=== PATIENT | male | born 1965 | race Hispanic/Latino ===

== ENCOUNTER 2021-12-12 10:04 | Inpatient (IN) | payer SELFPAY ==
[2021-12-12 12:43] LABS: Absolute Lymphocytes (CBC) 2.1 K/uL (0.7-4.9); Hematocrit 41.9 % (39.6-49.0); Lymphocytes % 24.2 % (15.3-44.8); MCV 87.4 fL (80-100); MPV 9.2 fL (7.6-11.3); RBC Red Blood Cell Count 4.79 M/uL (4.33-5.43)
[2021-12-12 12:58] LABS: SARS-CoV-2 Antigen Rapid Res Negative (Negative)
[2021-12-12] MEDS ORDERED: Levofloxacin 750mg IV 750 MG/150 ML BAG IV ONE (12:58)
[2021-12-12] MEDS ORDERED: NA CHLORIDE 0.9% 1,000 ML ONE (12:58)
[2021-12-12] MEDS ORDERED: MORPHINE 2 MG/ML SYR ONE (12:58)
[2021-12-12] MEDS ORDERED: METRONIDAZOLE 500mg IVPB 500 MG/100 ML BAG IV ONE (12:58)
[2021-12-12] MEDS ORDERED: ONDANSETRON 4 MG/2 ML VIAL ONE (12:58)
[2021-12-12 13:06] LABS: ALT/SGPT 30 U/L (12-78); AST/SGOT 12 U/L (15-37); Albumin 3.7 g/dL (3.4-5.0); Alkaline Phosphatase 115 U/L (45-117); BUN Blood Urea Nitrogen 12 mg/dL (7-18); Bicarbonate 27 mmol/L (21-32); Bilirubin Total 0.4 mg/dL (0.2-1.0); Glomerular Filtration Rate 93 ml/min (=/>90); Glucose Level 318 mg/dL (74-106); Magnesium 1.6 mg/dL (1.8-2.4); NT PRO-BNP 29 pg/mL (<125); Potassium 4.2 mmol/L (3.5-5.1); Protein, Total 7.9 g/dL (6.4-8.2); Sodium Level 134 mmol/L (136-145); Troponin High Sensitivity 12.9 pg/mL (<58.9)
[2021-12-12 13:07] LABS: Bilirubin Direct < 0.1 mg/dL (0-0.2)
--- NOTE | 2021-12-12 13:44 | RAD REPORT ---
EXAM DESCRIPTION: CT - Abdomen Pelvis W Contrast - 12/12/2021 1:28 pm CLINICAL HISTORY: Abdominal pain/rectal abscess COMPARISON: none. TECHNIQUE: Computed axial tomography of the abdomen pelvis was obtained. 100 cc Isovue-300 was admin istered intravenously. Oral contrast was not requested which limits evaluation of bowel and appendix All CT scans are performed using dose optimization technique as appropriate and may include automated exposure control or mA/KV adjustment according to patient size. FINDINGS: The liver, spleen, pancreas, adrenal and kidneys appear unremarkable. There is no evidence of diverticulitis. Normal appendix Rectal wall is normal thickness. Stranding is present within the right perianal fat. A fluid-filled a bscess is not seen. Moderate amount of stool within the colon Small inguinal hernias contain fat IMPRESSION: Stranding within the right perianal fat indicative of inflammation. A fluid-filled absce ss is not visualized
--- NOTE | 2021-12-12 13:44 | RAD REPORT ---
EXAM DESCRIPTION: Matty Single View12/12/2021 1:30 pm CLINICAL HISTORY: Cough COMPARISON: none FINDINGS: The lungs appear clear of acute infiltrate. The heart is normal size IMPRESSION: No acute abnormalities displayed
--- NOTE | 2021-12-12 15:52 | ER ---
Nurse's Notes [facility] Name: Gregg Barcenas Age: 55 yrs Sex: Male : 1965 Arrival Date: 12/12/2021 Time: 10:08 Bed 11 Private MD: Diagnosis: Hypomagnesemia;Anorectal abscess;Type 2 diabetes mellitus with hyperglycemia;Elevated white blood cell count Presentation: 12/12 10:50 Chief complaint: Patient states: I have an abscess in my rectum and I went to a clinic [facility] last month and they gave me medicine but I feel like its getting worse and its hurting more. Coronavirus screen: At this time, the client does not indicate any symptoms associated with coronavirus-19. Ebola Screen: No symptoms or risks identified at this time. Initial Sepsis Screen: Does the patient meet any 2 criteria? No. Patient's initial sepsis screen is negative. Does the patient have a suspected source of infection? Yes: Skin breakdown/wound. Risk Assessment: Do you want to hurt yourself or someone else? Patient reports no desire to harm self or others. Onset of symptoms is unknown. 10:50 Method Of Arrival: Ambulatory 7 10:50 Acuity: ZOYA 3 bm7 Triage Assessment: 10:53 General: Appears in no apparent distress. uncomfortable, Behavior is calm, cooperative, bm7 appropriate for age. Pain: Complains of pain in gluteal cleft. EENT: No deficits noted. No signs and/or symptoms were reported regarding the EENT system. Neuro: No deficits noted. Cardiovascular: No deficits noted. Respiratory: No deficits noted. GI: No deficits noted. No signs and/or symptoms were reported involving the gastrointestinal system. : No deficits noted. No signs and/or symptoms were reported regarding the genitourinary system. Derm: Skin is intact, is healthy with good turgor, Skin is dry, Skin is pink, warm \T\ dry. Skin temperature is warm Wound noted gluteal cleft Abscess located on gluteal cleft. Musculoskeletal: No deficits noted. No signs and/or symptoms reported regarding the musculoskeletal system. Historical: - Allergies: 10:51 No Known Allergies; bm7 - Home Meds: 10:51 metformin 500 mg Oral tab 1 tab 2 times per day [Active]; lisinopril 10 mg Oral tab 1 bm7 tab once daily [Active]; - PMHx: 10:51 Diabetes mellitus; Hypertensive disorder; bm7 - PSHx: 10:51 None; bm7 - Immunization history:: Adult Immunizations up to date, Client reports receiving the 2nd dose of the Covid vaccine, Client reports receiving the 1st dose of the Covid vaccine. - Social history:: Smoking status: Patient denies any tobacco usage or history of. - Family history:: not pertinent. Screenin:43 Abuse screen: Denies threats or abuse. Denies injuries from another. Nutritional ss screening: No deficits noted. Tuberculosis screening: Never had TB. Fall Risk None identified. Assessment: 12:00 General: Appears in no apparent distress. Pain: Complains of pain in gluteal cleft Pain ss currently is 8 out of 10 on a pain scale. Quality of pain is described as tender, Is continuous. Neuro: Level of Consciousness is awake, alert, obeys commands, Oriented to person, place, time, situation. Cardiovascular: Capillary refill < 3 seconds is brisk in bilateral fingers. Respiratory: Airway is patent Respiratory effort is even, unlabored, Respiratory pattern is regular, symmetrical. GI: Patient currently denies diarrhea, nausea, vomiting. : No signs and/or symptoms were reported regarding the genitourinary system. Derm: Skin is intact, is healthy with good turgor, Skin is dry, Skin is pink, warm \T\ dry. normal. Musculoskeletal: Circulation, motion, and sensation intact. Range of motion: intact in all extremities, Swelling absent. 13:20 Reassessment: Pt to CT now VIA stretcher. ss 14:43 Reassessment: Patient appears in no apparent distress at this time. Patient and/or ss family updated on plan of care and expected duration. Pain level reassessed. Patient is alert, oriented x 3, equal unlabored respirations, skin warm/dry/pink. Pt reports pain is currently 5/10. States that pain medication seemed to help. Levaquin infusing at this time. Awaiting disposition Patient states feeling better. Patient states symptoms have improved. 15:45 Reassessment: Patient appears in no apparent distress at this time. Patient and/or ss family updated on plan of care and expected duration. Pain level reassessed. 18:29 Reassessment: Patient appears in no apparent distress at this time. Patient and/or ss family updated on plan of care and expected duration. Pain level reassessed. Awaiting room assignment. City Dispatch Supervisor, Penny states it will be after shift change. 18:30 Reassessment: Pt ate 100% of Dinner. Has no complaints at this time. Call light remains ss within reach. at bedside. 19:18 Reassessment: Attempted to call report. Nurse unavailable at this time. ss 19:53 Reassessment: report called to Poornima BARROS for room 410. bb Vital Signs: 10:50 BP 168 / 87; Pulse 91; Resp 16; Temp 97.4(TE); Pulse Ox 100% on R/A; Weight 68.04 kg bm7 (R); Height 5 ft. 4 in. (162.56 cm); Pain 8/10; 16:15 BP 135 / 84; Pulse 75; Resp 16; Pulse Ox 99% ; ss 17:15 BP 151 / 80; Pulse 79; Resp 15; Pulse Ox 100% on R/A; Pain 4/10; ss 10:50 Body Mass Index 25.75 (68.04 kg, 162.56 cm) bm7 ED Course: 10:08 Patient arrived in ED. mr 10:51 Triage completed. bm7 10:53 Arm band placed on right wrist. Patient placed in waiting room, Patient notified of bm7 wait time. 11:45 Bib Black MD is Attending Physician. jama 12:35 Inserted saline lock: 20 gauge in right antecubital area, using aseptic technique. zm Blood collected. 12:36 SARS RAPID Sent. zm 12:36 Basic Metabolic Panel Sent. zm 12:36 CBC with Diff Sent. zm 12:36 LFT's Sent. zm 12:36 Magnesium Sent. zm 12:36 NT PRO-BNP Sent. zm 12:36 PT-INR Sent. zm 12:36 Troponin HS Sent. zm 13:01 Stephani Gates, RN is Primary Nurse. ss 13:29 CT Abd/Pelvis - IV Contrast Only In Process Unspecified. EDMS 13:33 XRAY Chest (1 view) In Process Unspecified. EDMS 14:43 Patient has correct armband on for positive identification. Bed in low position. ss 15:51 Melquiades Friend is Hospitalizing Provider. jama 19:18 No provider procedures requiring assistance completed. Patient admitted, IV remains in ss place. Administered Medications: 12:45 Drug: Zofran (Ondansetron) 4 mg Route: IVP; Site: right antecubital; ss 15:10 Follow up: Response: No adverse reaction ss 12:47 Drug: morphine 2 mg Route: IVP; Infused Over: 4 mins; Site: right antecubital; ss 15:10 Follow up: Response: No adverse reaction; Pain is decreased ss 13:01 Drug: NS 0.9% 1000 ml Route: IV; Rate: 125 ml/hr; Site: right antecubital; ss 16:04 Follow up: IV Status: Infusion continued upon admission ss 13:02 Drug: Flagyl (metroNIDAZOLE) 500 mg Volume: 100 ml; Route: IVPB; Rate: 200 ml/hr; ss Infused Over: 30 mins; Site: right antecubital; 13:47 Follow up: IV Status: Completed infusion ss 13:47 Drug: levofloxacin 750 mg Volume: 150 ml; Route: IVPB; Infused Over: 90 mins; Site: ss right antecubital; 15:45 Follow up: IV Status: Completed infusion ss 15:56 Drug: Magnesium Sulfate 1 grams Route: IVPB; Infused Over: 1 hrs; Site: right ss antecubital; 16:52 Follow up: IV Status: Completed infusion; IV Intake: 100ml ss 16:06 Not Given (Patient Refused): morphine 2 mg IVP once over 4 mins ss 17:38 Not Given (Other Intervention Used): Semaglutide Pen Injector 30 units Sub-Q once ss 17:53 Not Given (Other Intervention Used): Insulin Regular Human 5 units IVP once ss 17:53 Drug: Semglee 100 unit/mL 20 units Route: Sub-Q; Site: right upper arm; ss 17:53 Drug: Insulin Regular Human 5 units {Co-Signature: hb (Kourtney Silva RN).} Route: ss Sub-Q; Site: abdomen; Medication: 14:43 VIS not applicable for this client. ss Intake: 16:52 IV: 100ml; Total: 100ml. ss Outcome: 15:52 Decision to Hospitalize by Provider. [facility] 19:53 Admitted to Tele accompanied by tech, via wheelchair, room 410, with chart, Report bb called to Poornima BARROS 19:53 Condition: stable 19:54 Patient left the ED. bb Signatures: Dispatcher [employer] Bib Cerna MD MD cha Rivera, Mary mr Ballard, Emily, RN RN bb Stephani Gates RN RN ss Anne Briones RN RN bm7 Татьяна Hernández RN
--- NOTE | 2021-12-12 15:52 | EDPHYS ---
Physician Documentation [facility] Name: Gregg Barcenas Age: 55 yrs Sex: Male : 1965 Arrival Date: 12/12/2021 Time: 10:08 Bed 11 Private MD: SHIVANI Physician Bib Black HPI: 12/12 15:45 This 55 yrs old Male presents to ER via Ambulatory with complaints of jama Infection. 15:45 The patient presents with an abscess of the gluteal cleft, The patient presents with jama cellulitis of the gluteal cleft. Description: The affected area is moderate sized, localized, draining, erythematous, fluctuant. Onset: The symptoms/episode began/occurred 21 day(s) ago. Possible cause(s): unknown. Associated signs and symptoms: The patient has no apparent associated signs or symptoms. Modifying factors: the symptoms are alleviated by remaining still, sitz bath, the symptoms are aggravated by movement, walking, pressure, squeezing the lesion and expressing the contents. Severity of symptoms: At their worst the symptoms were moderate, in the emergency department the symptoms are unchanged. The patient has experienced similar episodes in the past, a few times. Historical: - Allergies: 10:51 No Known Allergies; bm7 - Home Meds: 10:51 metformin 500 mg Oral tab 1 tab 2 times per day [Active]; lisinopril 10 mg Oral tab 1 bm7 tab once daily [Active]; - PMHx: 10:51 Diabetes mellitus; Hypertensive disorder; bm7 - PSHx: 10:51 None; bm7 - Immunization history:: Adult Immunizations up to date, Client reports receiving the 2nd dose of the Covid vaccine, Client reports receiving the 1st dose of the Covid vaccine. - Social history:: Smoking status: Patient denies any tobacco usage or history of. - Family history:: not pertinent. ROS: 15:45 Constitutional: Negative for fever, chills, and weight loss, Eyes: Negative for injury, jama pain, redness, and discharge, ENT: Negative for injury, pain, and discharge, Neck: Negative for injury, pain, and swelling, Cardiovascular: Negative for chest pain, palpitations, and edema, Respiratory: Negative for shortness of breath, cough, wheezing, and pleuritic chest pain, Back: Negative for injury and pain, : Negative for injury, bleeding, discharge, and swelling, MS/Extremity: Negative for injury and deformity, Skin: Negative for injury, rash, and discoloration, Neuro: Negative for headache, weakness, numbness, tingling, and seizure, Psych: Negative for depression, anxiety, suicide ideation, homicidal ideation, and hallucinations, Allergy/Immunology: Negative for hives, rash, and allergies, Endocrine: Negative for neck swelling, polydipsia, polyuria, polyphagia, and marked weight changes, Hematologic/Lymphatic: Negative for swollen nodes, abnormal bleeding, and unusual bruising. 15:45 Abdomen/GI: Positive for rectal pain, of the . Exam: 15:45 Constitutional: This is a well developed, well nourished patient who is awake, alert, jama and in no acute distress. Head/Face: Normocephalic, atraumatic. Eyes: Pupils equal round and reactive to light, extra-ocular motions intact. Lids and lashes normal. Conjunctiva and sclera are non-icteric and not injected. Cornea within normal limits. Periorbital areas with no swelling, redness, or edema. ENT: Nares patent. No nasal discharge, no septal abnormalities noted. Tympanic membranes are normal and external auditory canals are clear. Oropharynx with no redness, swelling, or masses, exudates, or evidence of obstruction, uvula midline. Mucous membranes moist. Neck: Trachea midline, no thyromegaly or masses palpated, and no cervical lymphadenopathy. Supple, full range of motion without nuchal rigidity, or vertebral point tenderness. No Meningismus. Chest/axilla: Normal chest wall appearance and motion. Nontender with no deformity. No lesions are appreciated. Cardiovascular: Regular rate and rhythm with a normal S1 and S2. No gallops, murmurs, or rubs. Normal PMI, no JVD. No pulse deficits. Respiratory: Lungs have equal breath sounds bilaterally, clear to auscultation and percussion. No rales, rhonchi or wheezes noted. No increased work of breathing, no retractions or nasal flaring. Back: No spinal tenderness. No costovertebral tenderness. Full range of motion. Male : Normal genitalia with no discharge or lesions. Skin: Warm, dry with normal turgor. Normal color with no rashes, no lesions, and no evidence of cellulitis. MS/ Extremity: Pulses equal, no cyanosis. Neurovascular intact. Full, normal range of motion. Neuro: Awake and alert, GCS 15, oriented to person, place, time, and situation. Cranial nerves II-XII grossly intact. Motor strength 5/5 in all extremities. Sensory grossly intact. Cerebellar exam normal. Normal gait. Psych: Awake, alert, with orientation to person, place and time. Behavior, mood, and affect are within normal limits. 15:45 Abdomen/GI: Inspection: abdomen appears normal, Bowel sounds: normal, Palpation: abdomen is soft and non-tender, nontender, Rectal exam: Stool: guaiac negative, hemorrhoid(s), are not appreciated, mass, is not appreciated, swelling, that is moderate, tenderness, that is severe, fecal impaction, is not appreciated, Liver: no appreciated palpable abnormalities, PERIRECTAL ABSCESS, Hernia: 15:54 ECG was reviewed by the Attending Physician. [facility] Vital Signs: 10:50 BP 168 / 87; Pulse 91; Resp 16; Temp 97.4(TE); Pulse Ox 100% on R/A; Weight 68.04 kg bm7 (R); Height 5 ft. 4 in. (162.56 cm); Pain 8/10; 16:15 BP 135 / 84; Pulse 75; Resp 16; Pulse Ox 99% ; ss 17:15 BP 151 / 80; Pulse 79; Resp 15; Pulse Ox 100% on R/A; Pain 4/10; ss 10:50 Body Mass Index 25.75 (68.04 kg, 162.56 cm) bm7 MDM: 11:45 Patient medically screened. [facility] 15:45 Differential diagnosis: abscess, cellulitis. Data reviewed: vital signs, nurses notes, [facility] lab test result(s), EKG, radiologic studies, CT scan, plain films. Data interpreted: front desk monitor: rate is 91 beats/min, rhythm is regular, Pulse oximetry: on room air is 100 %. Test interpretation: by ED physician or midlevel provider: ECG, plain radiologic studies. Counseling: I had a detailed discussion with the patient and/or guardian regarding: lab results, radiology results, the need for further work-up and treatment in the hospital. 15:50 Physician consultation: Brett Givens MD. [facility] 12/12 11:52 Order name: Basic Metabolic Panel; Complete Time: 15:31 [facility] 12/12 11:52 Order name: CBC with Diff; Complete Time: 15:31 [facility] 12/12 11:52 Order name: LFT's; Complete Time: 15:31 [facility] 12/12 11:52 Order name: Magnesium; Complete Time: 15:31 [facility] 12/12 11:52 Order name: NT PRO-BNP; Complete Time: 15:31 [facility] 12/12 11:52 Order name: PT-INR; Complete Time: 15:31 [facility] 12/12 11:52 Order name: Troponin HS; Complete Time: 15:31 [facility] 12/12 11:52 Order name: XRAY Chest (1 view); Complete Time: 15:31 [facility] 12/12 11:52 Order name: SARS RAPID; Complete Time: 15:31 [facility] 12/12 11:52 Order name: CT Abd/Pelvis - IV Contrast Only; Complete Time: 15:31 [facility] 12/12 17:06 Order name: Glucose, Ancillary Testing EDMS 12/12 11:52 Order name: EKG; Complete Time: 11:53 [facility] 12/12 11:52 Order name: Cardiac monitoring; Complete Time: 12:44 [facility] 12/12 11:52 Order name: EKG - Nurse/Tech; Complete Time: 12:44 [facility] 12/12 11:52 Order name: IV Saline Lock; Complete Time: 12:36 [facility] 12/12 11:52 Order name: Labs collected and sent; Complete Time: 12:36 [facility] 12/12 11:52 Order name: O2 Per Protocol; Complete Time: 12:44 [facility] 12/12 11:52 Order name: O2 Sat Monitoring; Complete Time: 12:44 [facility] EC:54 Rate is 78 beats/min. Rhythm is regular. QRS [place] is Normal. [place] interval is normal. QRS jama interval is normal. QT interval is normal. No Q waves. T waves are Normal. No ST changes noted. Clinical impression: NSR w/ Non-specific ST/T Changes and No evidence of ischemia. Interpreted by me. Reviewed by me. Administered Medications: 12:45 Drug: Zofran (Ondansetron) 4 mg Route: IVP; Site: right antecubital; ss 15:10 Follow up: Response: No adverse reaction ss 12:47 Drug: morphine 2 mg Route: IVP; Infused Over: 4 mins; Site: right antecubital; ss 15:10 Follow up: Response: No adverse reaction; Pain is decreased ss 13:01 Drug: NS 0.9% 1000 ml Route: IV; Rate: 125 ml/hr; Site: right antecubital; ss 16:04 Follow up: IV Status: Infusion continued upon admission ss 13:02 Drug: Flagyl (metroNIDAZOLE) 500 mg Volume: 100 ml; Route: IVPB; Rate: 200 ml/hr; ss Infused Over: 30 mins; Site: right antecubital; 13:47 Follow up: IV Status: Completed infusion ss 13:47 Drug: levofloxacin 750 mg Volume: 150 ml; Route: IVPB; Infused Over: 90 mins; Site: ss right antecubital; 15:45 Follow up: IV Status: Completed infusion ss 15:56 Drug: Magnesium Sulfate 1 grams Route: IVPB; Infused Over: 1 hrs; Site: right ss antecubital; 16:52 Follow up: IV Status: Completed infusion; IV Intake: 100ml ss 16:06 Not Given (Patient Refused): morphine 2 mg IVP once over 4 mins ss 17:38 Not Given (Other Intervention Used): Semaglutide Pen Injector 30 units Sub-Q once ss 17:53 Not Given (Other Intervention Used): Insulin Regular Human 5 units IVP once ss 17:53 Drug: Semglee 100 unit/mL 20 units Route: Sub-Q; Site: right upper arm; ss 17:53 Drug: Insulin Regular Human 5 units {Co-Signature: hb (Kourtney Silva RN).} Route: ss Sub-Q; Site: abdomen; Disposition Summary: 12/12/21 15:52 Hospitalization Ordered Hospitalization Status: Observation jama Provider: Melquiades Friend cha [facility] jama Condition: Stable jama Problem: new jama Symptoms: have improved jama Bed/Room Type: Standard jama Room Assignment: 410(12/12/21 18:47) ss Diagnosis - Hypomagnesemia jama - Anorectal abscess jama - Type 2 diabetes mellitus with hyperglycemia jama - Elevated white blood cell count jama Forms: - Medication Reconciliation Form jama - SBAR form jama Signatures: Dispatcher [employer] Bib Cerna MD MD cha Smirch, Shelby, RN RN ss Anne Briones RN RN bm7 Kourtney mata Corrections: (The following items were deleted from the chart) 18:47 15:52 jama ss
[2021-12-12] MEDS ORDERED: MAGNESIUM SULFATE 1 gm IVPB 1 GM/100 ML BAG IV ONE (15:59)
[2021-12-12] MEDS ORDERED: INSULIN GLARGINE 100 UNIT/ML SQ ONE (17:45)
[2021-12-12] MEDS ORDERED: INSULIN -REGULAR HUMAN 50 UNIT/0.5 ML ML ONE (17:46)
--- NOTE | 2021-12-12 18:01 | P.HP ---
Certification for Inpatient Patient admitted to: Inpatient With expected LOS: >2 Midnights Practitioner: I am a practitioner with admitting privileges, knowledge of patient current condition, hospital course, and medical plan of care. Services: Services provided to patient in accordance with Admission requirements found in Title 42 Section 412.3 of the Code of Federal Regulations Patient History Date of Service: 12/12/21 Reason for admission: Draining abscess in the anal area History of Present Illness: 55-year-old gentleman with a history of diabetes mellitus presented to the emergency department due to draining perirectal abscess. Patient report development lump in the anal area about 1 month ago. He went to a clinic and was prescribed 2 antibiotics which he took for 10 days with no improvement. The lump began to drain a couple of days ago. He therefore presented to the ED for evaluation. CT abdomen and pelvis demonstrated stranding within the right perianal fat indicative of inflammation, no abscess identified. Patient has no leukocytosis and does not meet criteria for sepsis. General surgery Dr. Shelton was contacted who recommended hospitalization for examination in the OR. Patient is admitted for further management. - Past Medical/Surgical History -: Diabetes mellitus type 2 -: Hypertension - Family History Mother -: Diabetes - Social History Smoking Status: Former smoker Alcohol use: No CD- Drugs: No Place of Residence: Home Review of Systems Other: Except as documented, all other systems reviewed and negative. Physical Examination - Physical Exam General: Alert, In no apparent distress, Oriented x3 HEENT: Atraumatic, Mucous membr. moist/pink, Sclerae nonicteric Neck: Supple, JVD not distended Respiratory: Clear to auscultation bilaterally, Normal air movement Cardiovascular: No edema, Regular rate/rhythm, Normal S1 S2 Gastrointestinal: Normal bowel sounds, Soft and benign, Non-distended, No tenderness Musculoskeletal: No swelling, No tenderness Integumentary: No rashes, No erythema Neurological: Normal strength at 5/5 x4 extr, Cranial nerves 3-12 intact Rectal: Other (Pus draining pustule with surrounding induration.) - Studies Laboratory Data (last 24 hrs) 12/12/21 12:30: PT 11.0, INR 1.00 12/12/21 12:30: WBC 8.90, Hgb 14.4, Hct 41.9, Plt Count 258 12/12/21 12:30: Sodium 134 L, Potassium 4.2, BUN 12, Creatinine 0.95, Glucose 318 H, Magnesium 1.6 L, Total Bilirubin 0.4, AST 12 L, ALT 30, Alkaline Phosphatase 115 Assessment and Plan - Problems (Diagnosis) (1) Perirectal abscess Current Visit: Yes Status: Acute (2) DM type 2 (diabetes mellitus, type 2) Current Visit: Yes Status: Acute (3) Hypertension Current Visit: Yes Status: Acute - Plan Admit patient to the medical floor. IV antibiotics-Levaquin and Flagyl. Opioids as needed for pain. Obtain blood culture General surgery-Dr. Givens consulted to evaluate Insulin sliding scale for glucose management Hold metformin. Reconcile and continue other home medications. - Advance Directives Does patient have a Living Will: No Does patient have a Durable POA for Healthcare: No
[2021-12-12] MEDS ORDERED: ONDANSETRON 4 MG/2 ML VIAL IV PRN (20:43)
[2021-12-12] MEDS ORDERED: MORPHINE 4 MG/ML SYR IV PRN (20:43)
[2021-12-12] MEDS ORDERED: ACETAMINOPHEN 500 MG TAB PO PRN (20:43)
[2021-12-12] MEDS: INSULIN -REGULAR HUMAN 50 UNIT/0.5 ML ML SQ SCH (21:00)
[2021-12-13] MEDS: NA CHLORIDE 0.9% 1,000 ML IV SCH ×3 (00:04→16:43)
[2021-12-13] MEDS: METRONIDAZOLE 500mg IVPB 500 MG/100 ML BAG IV SCH ×3 (00:05→17:03)
[2021-12-13 04:18] LABS: Absolute Lymphocytes (CBC) 2.4 K/uL (0.7-4.9); Hematocrit 37.1 % (39.6-49.0); Lymphocytes % 23.3 % (15.3-44.8); MCV 85.7 fL (80-100); RBC Red Blood Cell Count 4.33 M/uL (4.33-5.43)
[2021-12-13 04:22] LABS: Phosphorus 3.2 mg/dL (2.5-4.9); Potassium 3.9 mmol/L (3.5-5.1)
[2021-12-13 04:23] LABS: Magnesium 1.2 mg/dL (1.8-2.4)
[2021-12-13] MEDS ORDERED: Magnesium Sulfate 2gm IVPB 2 G/50 ML BAG IV ONE (04:27)
[2021-12-13] MEDS: INSULIN -REGULAR HUMAN 50 UNIT/0.5 ML ML SQ SCH ×4 (07:30→20:53)
[2021-12-13] MEDS ORDERED: KCL 20 MEQ/100 mL IVPB 20 MEQ/100 ML BAG IV SCH (09:00)
[2021-12-13] MEDS ORDERED: NA CHLORIDE 0.9% 1,000 ML ONE (11:44)
--- NOTE | 2021-12-13 12:28 | P.CNS ---
Date of Consult: 12/13/21 Reason for consult: Rectal pain History of present illness: Patient is 55-year-old gentleman whose had an infectious disease perirectal region for the last month. Patient went to a clinic in [place] was started on antibiotics. Over the last week the area has started to drain. However, he had increasing pain; therefore, he came to the emergency room. He denies any nausea, vomiting, diarrhea, constipation, blood per rectum, dysuria, hematuria, chest pain, fever or chills. Review of systems: Otherwise unremarkable Past medical history: Hypertension diabetes Past surgical history: Negative Allergies: No allergies Social history: Patient used to be a smoker currently does not and denies drinking alcohol Family history: Noncontributory Vital signs: Stable, afebrile Physical exam: Awake alert oriented x3 Head and neck exam: No neck masses, no JVD, throat clear, neck supple and cranial nerves II through XII grossly within normal limits Chest: Clear Heart: S1-S2 Abdomen: Soft Extremity: Neurovascular intact, nontender Neuro: Nonfocal Rectal: Anterior to the anus in the right side there is approximately a 3 cm are a of induration redness warmth tenderness and minimal fluctuance Diagnostic data: White count is 10.2 INR is 1.0 magnesium was 1.2 which has been replaced now is 1.8 CT scan of the abdomen pelvis reveals stranding in the right perianal fat indicative of inflammation a large fluid-filled abscess is not visualized. Assessment: Perirectal abscess and infection. Plan/recommendation: N.p.o., IV antibiotics and to the OR for exam under anesthesia, rigid proctoscopy and debridement of perirectal abscess and infection. Patient understands risk, benefits and alternatives and agrees to procedure. CC:
[2021-12-13] MEDS ORDERED: propofoL 200 MG/20 ML VIAL IV ONE (12:47)
[2021-12-13] MEDS ORDERED: LIDOCAINE 2% MPF 5 ML VIAL ONE (12:47)
[2021-12-13] MEDS ORDERED: FENTANYL CITR 100 MCG/2 ML ONE (12:47)
[2021-12-13] MEDS ORDERED: dexAMETHasone 10 MG/ML VIAL ONE (12:48)
[2021-12-13] MEDS ORDERED: ONDANSETRON 4 MG/2 ML VIAL ONE (12:48)
[2021-12-13] MEDS ORDERED: KETOROLAC 30 MG/ML INJ ONE (12:48)
[2021-12-13] MEDS ORDERED: Levofloxacin 750mg IV 750 MG/150 ML BAG IV SCH (13:00)
--- NOTE | 2021-12-13 13:41 | P.OP ---
Date of Service: 12/13/21 Preop diagnosis: Right anterior perirectal abscess Postop diagnosis: Same, possible fistula high in the rectum Procedure performed: Exam under anesthesia, rigid proctoscopy, incision drainage and debridement of right anterior perirectal abscess Surgeon: Brett Givens MD Fertilizer Mixer: None Estimated blood loss: Minimal Specimen: Pus Findings: As above Anesthesia: General Complications: None Drains: None Fluids and blood products: Nonapplicable Disposition: Recovery room Operative note: Patient brought to the OR and placed in the supine position. General anesthesia begun. Patient placed in the lithotomy position. Patient prepped and draped in the usual sterile fashion. Exam under anesthesia revealed a 3 x 3 cm area of erythema, warmth and induration with fluctuance at the 11 o'clock position. Rigid proctoscopy did not reveal any evidence of disease. Marcaine 0.5% infiltrated locally. Then the 3 x 3 cm area of erythema and small opening was excised. Granulation tissue and pus evacuated and cultures done. Wound irrigated and bleeding controlled cautery. Curette used to debride the wound of the chronic granulation tissue. Attempt at probe headed towards a high rectal region but could not be completely well visualized. I suspected a fistula may be present. Wound irrigated again bleeding controlled cautery. Wet-to-dry normal saline dressing change applied. Patient awakened to recovery room in good general condition. CC:
[2021-12-13] MEDS ORDERED: HYDROMORPHONE HCL 1 MG/ML INJ IV PRN (13:57)
[2021-12-13] MEDS ORDERED: HYDROCODONE/APAP 7.5/325 MG TAB PO PRN (13:57)
--- NOTE | 2021-12-13 14:03 | P.PN ---
Subjective Date of Service: 12/13/21 Chief Complaint: Draining abscess in the anal area Patient has no new complaint. Status post I&D of perianal abscess by Dr. Givens today. Physical Examination - Vital Signs Temperature: 97.9 F Blood Pressure: 131/73 Pulse: 68 Respirations: 14 Pulse Ox (%): 99 Assessment And Plan - Current Problems (Diagnosis) (1) Perirectal abscess Current Visit: Yes Status: Acute (2) DM type 2 (diabetes mellitus, type 2) Current Visit: Yes Status: Acute (3) Hypertension Current Visit: Yes Status: Acute - Plan Physical Exam General: Alert, In no apparent distress, Oriented x3 Respiratory: Clear to auscultation bilaterally, Normal air movement Cardiovascular: No edema, Regular rate/rhythm, Normal S1 S2 Gastrointestinal: Normal bowel sounds, Soft and benign, Non-distended, No tenderness Integumentary: No rashes, No erythema Neurological: Normal strength at 5/5 x4 extr, Cranial nerves 3-12 intact Plan: Continue IV antibiotics-Levaquin and Flagyl. Pain control as inpatient with IV opioids. Follow cultures. Dr. Givens input appreciated. Insulin sliding scale for glucose management Resume metformin. ADA diet as tolerated.
[2021-12-13] MEDS: GLIMEPIRIDE 2 MG TABLET PO SCH (20:53)
[2021-12-13] MEDS: METFORMIN HCL 500 MG TAB PO SCH (20:53)
[2021-12-13 21:51] VITALS: BMI 25.6
[2021-12-14] MEDS: METRONIDAZOLE 500mg IVPB 500 MG/100 ML BAG IV SCH ×2 (00:24→08:50)
[2021-12-14] MEDS: NA CHLORIDE 0.9% 1,000 ML IV SCH (03:20)
[2021-12-14 04:40] LABS: Absolute Lymphocytes (CBC) 1.3 K/uL (0.7-4.9); Hematocrit 35.7 % (39.6-49.0); Lymphocytes % 10.5 % (15.3-44.8); MCV 86.8 fL (80-100); MPV 8.7 fL (7.6-11.3); RBC Red Blood Cell Count 4.11 M/uL (4.33-5.43)
[2021-12-14 05:02] LABS: Magnesium 1.5 mg/dL (1.8-2.4); Phosphorus 2.6 mg/dL (2.5-4.9); Potassium 4.1 mmol/L (3.5-5.1)
[2021-12-14] MEDS: INSULIN -REGULAR HUMAN 50 UNIT/0.5 ML ML SQ SCH (07:30)
[2021-12-14] MEDS: GLIMEPIRIDE 2 MG TABLET PO SCH (08:49)
[2021-12-14] MEDS: METFORMIN HCL 500 MG TAB PO SCH (08:49)
[2021-12-14] MEDS ORDERED: lisinopriL 20 MG TAB PO SCH (09:00)
[2021-12-14] MEDS ORDERED: Magnesium Sulfate 2gm IVPB 2 G/50 ML BAG IV ONE (09:00)
[2021-12-14 09:46] VITALS: O2SAT 100
--- NOTE | 2021-12-14 09:54 | P.DS ---
Admission Date: 12/12/21 Discharge Date: 12/14/21 Disposition: ROUTINE DISCHARGE Discharge Condition: FAIR Reason for Admission: Draining abscess in the anal area - Problems (1) Perirectal abscess Status: Acute (2) DM type 2 (diabetes mellitus, type 2) Status: Acute (3) Hypertension Status: Acute Brief History of Present Illness: 55-year-old gentleman with a history of diabetes mellitus presented to the emergency department due to draining perirectal abscess. Patient report development lump in the anal area about 1 month ago. He went to a clinic and was prescribed 2 antibiotics which he took for 10 days with no improvement. The lump began to drain a couple of days ago. He therefore presented to the ED for evaluation. CT abdomen and pelvis demonstrated stranding within the right perianal fat indicative of inflammation, no abscess identified. Patient has no leukocytosis and does not meet criteria for sepsis. General surgery Dr. Shelton was contacted who recommended hospitalization for examination in the OR. Patient is admitted for further management. Hospital Course: Patient admitted to the medical floor, started on IV antibiotics. He was seen by Dr. Givens-General surgery who performed incision and drainage under anesthesia. Per Dr. Givens, he noted patient has a fistula and will need follow- up with a colorectal surgeon for further evaluation. Pain is well controlled. Patient is discharged with oral antibiotics to continue treatment for the perianal abscess. He is informed to follow-up with a colorectal surgeon. Vital Signs/Physical Exam: Temp Pulse Resp BP Pulse Ox 97.4 F 88 14 125/71 100 12/14/21 08:00 12/14/21 08:49 12/14/21 08:00 12/14/21 08:49 12/14/21 08:00 General: Alert, In no apparent distress, Oriented x3 Neck: Supple, JVD not distended Respiratory: Clear to auscultation bilaterally Cardiovascular: No edema, Regular rate/rhythm, Normal S1 S2 Gastrointestinal: Soft and benign, Non-distended Musculoskeletal: No swelling Integumentary: No erythema, No cyanosis Neurological: Normal strength at 5/5 x4 extr Laboratory Data at Discharge: WBC 12.30 K/uL (4.3-10.9) H D 12/14/21 04:18 Hgb 12.3 g/dL (13.6-17.9) L 12/14/21 04:18 Hct 35.7 % (39.6-49.0) L 12/14/21 04:18 Plt Count 238 K/uL (152-406) 12/14/21 04:18 PT 11.0 SECONDS (9.5-12.5) 12/12/21 12:30 INR 1.00 12/12/21 12:30 Sodium 135 mmol/L (136-145) L 12/14/21 04:18 Potassium 4.1 mmol/L (3.5-5.1) 12/14/21 04:18 BUN 16 mg/dL (7-18) 12/14/21 04:18 Creatinine 1.06 mg/dL (0.55-1.3) 12/14/21 04:18 Glucose 243 mg/dL (74-106) H 12/14/21 04:18 Phosphorus 2.6 mg/dL (2.5-4.9) 12/14/21 04:18 Magnesium 1.5 mg/dL (1.8-2.4) L 12/14/21 04:18 Total Bilirubin 0.4 mg/dL (0.2-1.0) 12/12/21 12:30 AST 12 U/L (15-37) L 12/12/21 12:30 ALT 30 U/L (12-78) 12/12/21 12:30 Alkaline Phosphatase 115 U/L (45-117) 12/12/21 12:30 Home Medications: Glimepiride [Amaryl*] 2 mg PO BID 12/13/21 Lisinopril [Zestril] 1 tab PO DAILY 12/13/21 Metformin HCl 1,000 mg PO BID 12/13/21 Ciprofloxacin HCl [Cipro] 500 mg PO BID #20 tab 12/14/21 Hydrocodone 7.5/APAP 325 [[place] 7.5/325 mg*] 1 tab PO Q4H PRN #12 tab 12/14/21 metroNIDAZOLE [Flagyl] 500 mg PO Q8H #30 tab 12/14/21 New Medications: Ciprofloxacin HCl [Cipro] 500 mg PO BID #20 tab metroNIDAZOLE [Flagyl] 500 mg PO Q8H #30 tab Hydrocodone 7.5/APAP 325 [[place] 7.5/325 mg*] 1 tab PO Q4H PRN #12 tab PRN Reason: Pain Scale 5-7 (Moderate) Diet: ADA Activity: Ad karen Followup: Brett Givens MD [ACTIVE - CAN ADMIT] - 1-2 Weeks (Call to schedule appointment.) Time spent managing pt's care (in minutes): 35
--- NOTE | 2021-12-14 10:12 | P.PN ---
Date of Service: 12/14/21 Subjective: Patient is awake and alert. Patient has no pain. Objective: Vital signs stable, afebrile. White count is 12.3 Dressing is clean dry and intact Assessment: Status post exam under anesthesia, proctoscopy and incision drainage and debridement of right perirectal abscessconcerning for fistula. Plan: From a surgical standpoint, patient can be discharged to home. Patient needs 2 weeks of Cipro and Flagyl. Wet-to-dry normal saline dressing changes daily. Family will be instructed. Patient can follow-up with me in my office in 2 weeks. If needed, patient will be referred to a colorectal specialist. CC:
[2021-12-14 11:44] VITALS: BP 104/54; TEMP 97.6
--- NOTE | 2021-12-15 15:11 | EKG ---
Test Date: 2021-12-12 Test Time: 12:39:32 Ethylene Plant Helper: MIRIAN MEASUREMENT RESULTS: Intervals: Rate: 78 OH: 140 QRSD: 84 QT: 354 QTc: 403 [place]: P: 37 OH: 140 QRS: 26 T: -1 INTERPRETIVE STATEMENTS: Normal sinus rhythm Normal ECG No previous ECG available for comparison Electronically Signed On 12-15-21 15:09:28 CDT by Kojo Priest
== END 2021-12-14 13:29 | disposition home or self-care (01) | DRG 395 ==
LOC: ER 10:04 → ERHOLD 17:47 → 4TH 19:36
PROVIDERS: ADMIT Internal Medicine; ATTEND Internal Medicine
PROC: 0DJD8ZZ Inspection of Lower Intestinal Tract, Via Natural or Artificial Opening Endoscopic (ICD-10-PCS; 2021-12-13)
PROC: 0D9P7ZX Drainage of Rectum, Via Natural or Artificial Opening, Diagnostic (ICD-10-PCS; principal; 2021-12-13 10:45)
DX: K61.1 Rectal abscess (principal); K60.4 Rectal fistula; E11.9 Type 2 diabetes mellitus without complications; I10 Essential (primary) hypertension; Z20.822 Contact with and (suspected) exposure to COVID-19
CPT/HCPCS: 36415; 71045; 74177; 80048; 80076; 82947; 83735; 83880; 84100; 84484; 85025; 85610; 87040; 87070; 87075; 87077; 87186; 87205; 87811; 93005; 94010; 96365; 96366; 96367; 96372; 96375; 99285; J1100; J1170; J1815; J2001; J2270; J2405; J2704; J3010; J3475; J3480; J7030; Q9967

== ENCOUNTER 2022-09-25 15:17 | Inpatient (IN) | payer SELFPAY ==
[2022-09-25] MEDS ORDERED: ACETAMINOPHEN 500 MG TAB ONE (17:05)
[2022-09-25 17:36] LABS: Absolute Lymphocytes (CBC) 1.3 K/uL (0.7-4.9); Hematocrit 38.3 % (39.6-49.0); Lymphocytes % 10.7 % (15.3-44.8); MCV 94.3 fL (80-100); MPV 8.7 fL (7.6-11.3); RBC Red Blood Cell Count 4.06 M/uL (4.33-5.43)
[2022-09-25 17:51] LABS: Albumin 3.8 g/dL (3.4-5.0); Bilirubin Total 0.4 mg/dL (0.2-1.0); Potassium 3.9 mEq/L (3.5-5.1)
--- NOTE | 2022-09-25 18:55 | RAD REPORT ---
EXAM DESCRIPTION: CT - Pelvis W/Cont - 09/25/2022 6:43 pm CLINICAL HISTORY: perianal abscess Pain and swelling COMPARISON: No comparisons TECHNIQUE: All CT scans are performed using dose optimization technique as appropriate and may inclu de automated exposure control or mA/KV adjustment according to patient size. FINDINGS: Perianal abscess is seen extending inferiorly along the medial right buttock measuring 36 x 20 mm. This is subcutaneous in location. There is moderate surrounding inflammation. No soft tissue gas seen. Intrapelvic contents are unremarkable. IMPRESSION: 36 x 20 mm subcutaneous perianal abscess on the right.
--- NOTE | 2022-09-25 19:06 | EDPHYS ---
Physician Documentation [facility] Name: Gregg Barcenas Age: 56 yrs Sex: Male : 1965 Arrival Date: 09/25/2022 Time: 15:17 Bed 18 Private MD: ED Physician Tadeo Michelle HPI: 09/25 16:25 This 56 yrs old Male presents to ER via Ambulatory with complaints of Perianal jmm abscess. 16:25 The patient presents to the emergency department with an abscess of the anus, pain in jmm the rectal area. Onset: The symptoms/episode began/occurred gradually, 3 day(s) ago. Modifying factors: The symptoms are alleviated by nothing, The symptoms are aggravated by nothing. This is a 56 yea rold male with a history of dm, htn, hlp that presents to the ED with complaints of buttock pain and swelling beginning this past Wednesday. Currently taking augmentin, cipro, and flagyl with no relief of symptoms. . Historical: - Allergies: 16:01 No Known Allergies; cm10 - PMHx: 16:01 diabetes mellitus; Hypertensive disorder; high cholesterol; cm10 - Immunization history:: Adult Immunizations up to date. - Social history:: Smoking status: Patient/guardian denies using tobacco, the patient reports quitting approximately 7 years ago. ROS: 16:25 Constitutional: Negative for fever, chills, and weight loss, Cardiovascular: Negative jmm for chest pain, palpitations, and edema, Respiratory: Negative for shortness of breath, cough, wheezing, and pleuritic chest pain. 16:25 Skin: Positive for abscess. 16:25 All other systems are negative. Exam: 16:25 Constitutional: This is a well developed, well nourished patient who is awake, alert, jmm and in no acute distress. Head/Face: atraumatic. Eyes: EOMI, no conjunctival erythema appreciated ENT: Moist Mucus Membranes Neck: Trachea midline, Supple Chest/axilla: Normal chest wall appearance and motion. Cardiovascular: Regular rate and rhythm. No edema appreciated Respiratory: Normal respirations, no respiratory distress appreciated Abdomen/GI: Non distended Back: Normal ROM 16:25 Skin: abscess, that is moderate sized, of the anus. 16:25 Neuro: Motor: is normal. 16:25 Psych: Behavior/mood is pleasant, cooperative. Vital Signs: 15:58 BP 135 / 88; Pulse 92; Resp 89; Temp 100.7(TE); Pulse Ox 98% on R/A; Weight 68.04 kg; cm10 Height 5 ft. 5 in. ; Pain 7/10; 17:32 BP 148 / 84; Pulse 84; Resp 20 S; Pulse Ox 100% on R/A; kc6 18:16 BP 131 / 68; Pulse 75; Resp 18 S; Pulse Ox 97% on R/A; kc6 18:55 BP 126 / 75; Pulse 70; Resp 23 S; Pulse Ox 100% on R/A; kc6 20:00 BP 115 / 70; Pulse 77; Resp 16; Pulse Ox 100% on R/A; jb4 21:00 BP 118 / 67; Pulse 70; Resp 16; Pulse Ox 98% on R/A; jb4 15:58 Body Mass Index 24.96 (68.04 kg, 165.1 cm) cm10 15:58 Pain Scale: Adult cm10 MDM: 16:29 Patient medically screened. [facility] 19:00 ED course: Discussed patient with Dr. Givens. Will perform surgery at 930 am. Requests [facility] NPO after midnight. . 22:31 Differential diagnosis: abscess. Data reviewed: vital signs, nurses notes, lab test [facility] result(s), radiologic studies, CT scan. Consideration of Admission/Observation Patient was admitted/placed on observation. Escalation of care including admission/observation considered. I considered the following discharge prescriptions or medication management in the emergency department Medications were administered in the Emergency Department. See MAR. Counseling: I had a detailed discussion with the patient and/or guardian regarding: the historical points, exam findings, and any diagnostic results supporting the discharge/admit diagnosis, lab results, radiology results, the need for further work-up and treatment in the hospital. 09/25 16:25 Order name: Blood Culture Adult (2) [facility] 09/25 16:25 Order name: CBC with Diff; Complete Time: 18:06 [facility] 09/25 16:25 Order name: CMP; Complete Time: 18:06 [facility] 09/25 16:25 Order name: Lactate w/ 2H reflex if indic.; Complete Time: 17:45 [facility] 09/25 16: Order name: Protime (+inr); Complete Time: 21:27 [facility] 09/25 16:25 Order name: Ptt, Activated; Complete Time: 21:27 [facility] 09/25 18:23 Order name: CT Pelvis w cont; Complete Time: 18:56 [facility] 09/25 16:25 Order name: EKG; Complete Time: 16:26 [facility] 09/25 16:25 Order name: Accucheck; Complete Time: 17:17 [facility] 09/25 16:25 Order name: Cardiac monitoring; Complete Time: 17:17 [facility] 09/25 16:25 Order name: EKG - Nurse/Tech; Complete Time: 17:32 [facility] 09/25 16:25 Order name: IV Saline Lock - Large Bore; Complete Time: 17:17 [facility] 09/25 16:25 Order name: Labs collected and sent; Complete Time: 17:17 [facility] 09/25 16:25 Order name: O2 Per Protocol; Complete Time: 17:17 [facility] 09/25 16:25 Order name: O2 Sat Monitoring; Complete Time: 17:17 [facility] 09/25 16:25 Order name: Vital Signs; Complete Time: 17:17 [facility] 09/25 16:54 Order name: Gown patient; Complete Time: 17:17 [facility] Administered Medications: 17:17 Drug: Acetaminophen PO 1000 mg Route: PO; kc6 19:21 Drug: Piperacillin-Tazobactam IVPB 3.375 grams Route: IVPB; Infused Over: 60 mins; jb4 Site: right antecubital; Disposition Summary: 09/25/22 19:05 Hospitalization Ordered Hospitalization Status: Observation jm Condition: Stable jm Problem: new jmm Symptoms: are unchanged jm Bed/Room Type: Standard [facility] Provider: Faheem Shannon(09/25/22 19:07) jm Location: Telemetry/MedSurg (observation)(09/25/22 20:44) Room Assignment: [facility](09/25/22 20:44) Diagnosis - Perianal abscess jmm - Failed outpatient therapy jmm Forms: - Medication Reconciliation Form jmm - SBAR form [facility] Addendum: 09/28/2022 10:52 Co-signature as Attending Physician, Tadeo Michelle MD I reviewed the patient's care r n provided by the Advanced Practice Provider and agree with the diagnosis and treatment plan. Signatures: Dispatcher [employer] EDMS Mickail, Timothy, PA PA [facility] Tadeo Michelle MD MD rn Garcia, Cindy, RN RN Tico Romero RN RN [email or web address] Lucita Dillard RN RN kc6 Quiana Hernández RN RN cm10 Corrections: (The following items were deleted from the chart) 09/25 19:07 19:05 Shaan Valdez [facility] 19:40 19:05 Telemetry/MedSurg (observation) [facility] cg 19:40 19:05 [facility] cg 20:44 19:40 [facility] ER [facility] cg cg 20:44 19:40 [facility]- cg cg
--- NOTE | 2022-09-25 19:06 | ER ---
Nurse's Notes [facility] Name: Gregg Barcenas Age: 56 yrs Sex: Male : 1965 Arrival Date: 09/25/2022 Time: 15:17 Bed 18 Private MD: Diagnosis: Perianal abscess;Failed outpatient therapy Presentation: 09/25 15:58 Chief complaint: Patient states: Abscess to right butt cheek onset Wednesday. Pt states cm10 that he was seen at PCP on Wednesday and was started on ABX. Pt states that he went back today because the pain was getting worse and was told to come to the ED. Pt states subjective fever 2 days ago. Coronavirus screen: Vaccine status: Patient reports receiving the 2nd dose of the covid vaccine. Client denies travel out of the [place] in the last 14 days. At this time, the client does not indicate any symptoms associated with coronavirus-19. Ebola Screen: No symptoms or risks identified at this time. Initial Sepsis Screen: Does the patient meet any 2 criteria? HR > 90 bpm. No. Patient's initial sepsis screen is negative. Does the patient have a suspected source of infection? Yes: Skin breakdown/wound. Risk Assessment: Do you want to hurt yourself or someone else? Patient reports no desire to harm self or others. Onset of symptoms was September 23, 2022. 15:58 Method Of Arrival: Ambulatory cm10 15:58 Acuity: ZOYA 3 cm10 Triage Assessment: 16:01 General: Appears in no apparent distress. uncomfortable, Behavior is calm, cooperative. cm10 Pain: Complains of pain in right gluteal fold. Neuro: No deficits noted. Level of Consciousness is awake, alert, obeys commands, Oriented to person, place, time, situation. Respiratory: No deficits noted. Airway is patent Respiratory effort is even, unlabored, Respiratory pattern is regular, symmetrical. Historical: - Allergies: 16:01 No Known Allergies; cm10 - PMHx: 16:01 diabetes mellitus; Hypertensive disorder; high cholesterol; cm10 - Immunization history:: Adult Immunizations up to date. - Social history:: Smoking status: Patient/guardian denies using tobacco, the patient reports quitting approximately 7 years ago. Screenin:18 [facility] ED Fall Risk Assessment (Adult) History of falling in the last 3 months, kc6 including since admission No falls in past 3 months (0 pts) Confusion or Disorientation No (0 pts) Intoxicated or Sedated No (0 pts) Impaired Gait No (0 pts) Mobility Assist Device Used No (0 pt) Altered Elimination No (0 pt) Score/Fall Risk Level 0 - 2 = Low Risk Oriented to surroundings, Maintained a safe environment, Educated pt \T\ family on fall prevention, incl call for assistance when getting out of bed, Assessed \T\ reinforced patient's understanding of fall precautions, Hourly rounding (assess needs \T\ fall precautionary measures) done. Abuse screen: Denies threats or abuse. Denies injuries from another. Nutritional screening: No deficits noted. Tuberculosis screening: No symptoms or risk factors identified. Assessment: 17:52 General: Appears in no apparent distress. uncomfortable, Behavior is calm, cooperative, kc6 appropriate for age. Pain: Complains of pain in buttocks and right gluteal fold. Neuro: Perez Agitation-Sedation Scale (RASS): 0 - Alert and Calm Level of Consciousness is awake, alert, obeys commands, Oriented to person, place, time, situation, Appropriate for age. Cardiovascular: Capillary refill < 3 seconds. Respiratory: Airway is patent Trachea midline Respiratory effort is even, unlabored, Respiratory pattern is regular, symmetrical. GI: No signs and/or symptoms were reported involving the gastrointestinal system. : No signs and/or symptoms were reported regarding the genitourinary system. EENT: No signs and/or symptoms were reported regarding the EENT system. Derm: Skin is pink, warm \T\ dry. Abscess located on buttocks and right gluteal fold. Musculoskeletal: No signs and/or symptoms reported regarding the musculoskeletal system. Circulation, motion, and sensation intact. Capillary refill < 3 seconds, Range of motion: intact in all extremities. 18:15 Reassessment: Patient appears in no apparent distress at this time. No changes from kc6 previously documented assessment. Patient and/or family updated on plan of care and expected duration. Pain level reassessed. Patient is alert, oriented x 3, equal unlabored respirations, skin warm/dry/pink. 18:55 Reassessment: Patient appears in no apparent distress at this time. No changes from kc6 previously documented assessment. Patient and/or family updated on plan of care and expected duration. Pain level reassessed. Patient is alert, oriented x 3, equal unlabored respirations, skin warm/dry/pink. Vital Signs: 15:58 BP 135 / 88; Pulse 92; Resp 89; Temp 100.7(TE); Pulse Ox 98% on R/A; Weight 68.04 kg; cm10 Height 5 ft. 5 in. ; Pain 7/10; 17:32 BP 148 / 84; Pulse 84; Resp 20 S; Pulse Ox 100% on R/A; kc6 18:16 BP 131 / 68; Pulse 75; Resp 18 S; Pulse Ox 97% on R/A; kc6 18:55 BP 126 / 75; Pulse 70; Resp 23 S; Pulse Ox 100% on R/A; kc6 20:00 BP 115 / 70; Pulse 77; Resp 16; Pulse Ox 100% on R/A; jb4 21:00 BP 118 / 67; Pulse 70; Resp 16; Pulse Ox 98% on R/A; jb4 15:58 Body Mass Index 24.96 (68.04 kg, 165.1 cm) cm10 15:58 Pain Scale: Adult cm10 ED Course: 15:23 Patient arrived in ED. im 16:01 Triage completed. cm10 16:02 Arm band placed on Patient placed in waiting room. cm10 16:03 Timothy Fink PA is PHCP. [facility] 16:03 Tadeo Michelle MD is Attending Physician. jmm 16:55 Lucita Dillard, PAPO is Primary Nurse. kc6 17:17 Inserted saline lock: 20 gauge in right antecubital area, using aseptic technique. kc6 Blood collected. 17:18 Patient has correct armband on for positive identification. Placed in gown. Bed in low kc6 position. Call light in reach. Side rails up X 1. Adult w/ patient. 17:32 Inserted saline lock: 20 gauge in left antecubital area, using aseptic technique. Blood kc6 collected. 18:45 CT Pelvis w cont In Process Unspecified. EDMS 19:04 Shaan Valdez FNP-C is Hospitalizing Provider. jmm 19:07 Faheem Shannon MD is Hospitalizing Provider. jmm 22:09 No provider procedures requiring assistance completed. Patient admitted, IV remains in jb4 place. Administered Medications: 17:17 Drug: Acetaminophen PO 1000 mg Route: PO; kc6 19:21 Drug: Piperacillin-Tazobactam IVPB 3.375 grams Route: IVPB; Infused Over: 60 mins; jb4 Site: right antecubital; Outcome: 19:05 Decision to Hospitalize by Provider. maria l 22:09 Admitted to Med/surg accompanied by tech, room 217, with chart. jb4 22:09 Condition: stable 22:09 Discharge instructions given to patient, Instructed on the need for admit, Demonstrated understanding of instructions. 22:09 Patient left the ED. jb4 Signatures: Dispatcher [employer] EDMS Timothy Fink PA PA jmm Bryson, James, RN RN jb4 Lucita Dillard RN RN kc6 Ghada Bustos Clarissa, RN RN cm10
[2022-09-25] MEDS ORDERED: PIPERACIL/TAZO 3.375 GM VIAL IV ONE (19:17)
[2022-09-25] MEDS ORDERED: NA CHLORIDE 0.9% 100 ML ONE (19:17)
--- NOTE | 2022-09-25 19:47 | P.HP ---
Certification for Inpatient Patient admitted to: Inpatient With expected LOS: >2 Midnights Patient will require the following post-hospital care: None Practitioner: I am a practitioner with admitting privileges, knowledge of patient current condition, hospital course, and medical plan of care. Services: Services provided to patient in accordance with Admission requirements found in Title 42 Section 412.3 of the Code of Federal Regulations Patient History Date of Service: 09/25/22 Reason for admission: Perianal abscess History of Present Illness: 56-year-old male with history of [id number] diabetes, hypertension, hyperlipidemia presents the emergency department with chief complaint of perianal abscess. He noticed the symptoms on Wednesday, was seen by his PCP on the and prescribed antibiotics Augmentin, Cipro, Flagyl p.o. He has been taking antibiotics without any improvement, reports worsening pain and subjective fevers. He was evaluated in the emergency department today his labs are significant for leukocytosis with also count 12.2 glucose 167 additional SIRS criteria present including heart rate greater than 90, respiratory rate greater than 20 being criteria for sepsis. Initial lactate less than 2 no hypotension noted no severe sepsis currently. Will be admitted for perianal abscess. ED provider discussed case with general surgery who plans on doing surgical incision and drainage in the morning around 9 AM. Allergies No Known Allergies Allergy (Verified 12/12/21 20:43) Home Medications: Glimepiride [Amaryl*] 2 mg PO BID 12/13/21 Lisinopril [Zestril] 1 tab PO DAILY 12/13/21 Metformin HCl 1,000 mg PO BID 12/13/21 Ciprofloxacin HCl [Cipro] 500 mg PO BID #20 tab 12/14/21 Hydrocodone 7.5/APAP 325 [[place] 7.5/325 mg*] 1 tab PO Q4H PRN #12 tab 12/14/21 metroNIDAZOLE [Flagyl] 500 mg PO Q8H #30 tab 12/14/21 - Past Medical/Surgical History -: Diabetes mellitus type 2 -: Hypertension -: Hyperlipidemia -: Perianal abscess Psychosocial/ Personal History: Lives at home with family - Family History Mother -: Diabetes - Social History Smoking Status: Never smoker Alcohol use: No CD- Drugs: No Caffeine use: Yes Place of Residence: Home Review of Systems 10-point ROS is otherwise unremarkable General: Fever, Chills Integumentary: Other (rectal pain) Physical Examination - Physical Exam General: Alert, In no apparent distress, Oriented x3 HEENT: Atraumatic, PERRLA, Mucous membr. moist/pink, EOMI, Sclerae nonicteric Neck: Supple, 2+ carotid pulse no bruit, No LAD, Without JVD or thyroid abnormality Respiratory: Clear to auscultation bilaterally, Normal air movement Cardiovascular: No edema, Regular rate/rhythm, Normal S1 S2 Capillary refill: <2 Seconds Gastrointestinal: Normal bowel sounds, No tenderness Musculoskeletal: No tenderness Integumentary: Other (right sided perianal abscess present) Neurological: Normal gait, Normal speech, Normal strength at 5/5 x4 extr, Normal tone, Normal affect Lymphatics: No axilla or inguinal lymphadenopathy - Studies Laboratory Data (last 24 hrs) 09/25/22 17:11: Sodium 134 L, Potassium 3.9, BUN 16, Creatinine 1.03, Glucose 167 H, Total Bilirubin 0.4, AST 27, ALT 45, Alkaline Phosphatase 47 09/25/22 17:11: WBC 12.20 H, Hgb 12.6 L, Hct 38.3 L, Plt Count 245 Assessment and Plan - Plan Assessment: Sepsis secondary to perianal abscessfailed outpatient management Diabetes mellitus type [id number] Hypertension Hyperlipidemia Plan: Sepsis secondary to perianal abscessfailed outpatient management N.p.o., IVF, IV antibiotics. General surgery consult in place, plan for surgica l incision and drainage around 9 AM on the . Diabetes mellitus type [id number] ACHS Accu-Chek, sliding scale sent. Hypertension Hyperlipidemia Continue home indications. DVT PPX:SCD Code status: Full Discharge Plan: Home Plan to discharge in: 48 Hours - Advance Directives Does patient have a Living Will: No Does patient have a Durable POA for Healthcare: No - Code Status/Comfort Care Code Status Assessed: Yes (Full code) Critical Care: No Time Spent Managing Pts Care (In Minutes): 55
[2022-09-25] MEDS ORDERED: ACETAMINOPHEN 500 MG TAB PO PRN (20:35)
[2022-09-25] MEDS ORDERED: ONDANSETRON 4 MG/2 ML VIAL IV PRN (20:35)
[2022-09-25] MEDS: INSULIN -REGULAR HUMAN 50 UNIT/0.5 ML ML SQ SCH (21:00)
[2022-09-25 21:16] LABS: Protime INR 1.22
[2022-09-25] MEDS: NA CHLORIDE 0.9% 1,000 ML IV SCH (23:15)
[2022-09-25 23:26] VITALS: BMI 24.7
[2022-09-26] MEDS: MORPHINE 2 MG/ML SYR IV PRN ×2 (00:20→07:34)
[2022-09-26] MEDS ORDERED: METRONIDAZOLE 500mg IVPB 500 MG/100 ML BAG IV SCH (01:00)
[2022-09-26 03:26] LABS: Absolute Lymphocytes (CBC) 1.7 K/uL (0.7-4.9); Hematocrit 36.7 % (39.6-49.0); Lymphocytes % 14.9 % (15.3-44.8); MPV 9.4 fL (7.6-11.3); RBC Red Blood Cell Count 3.87 M/uL (4.33-5.43)
[2022-09-26 03:48] LABS: Potassium 3.5 mEq/L (3.5-5.1)
[2022-09-26] MEDS: NA CHLORIDE 0.9% 1,000 ML IV SCH ×3 (06:35→16:35)
[2022-09-26] MEDS: INSULIN -REGULAR HUMAN 50 UNIT/0.5 ML ML SQ SCH ×4 (07:30→20:24)
[2022-09-26] MEDS: PIPER TAZO 3.375 GM in NA CHLORIDE 0.9% 100 ML IV SCH ×2 (08:58→16:31)
[2022-09-26] MEDS ORDERED: CIPROFLOXACIN 400mg IV 400 MG/200 ML BAG IV SCH (09:00)
--- NOTE | 2022-09-26 09:24 | P.CNS ---
Date of Consult: 09/26/22 Reason for consult: Perianal pain History of present illness: 56-year-old gentleman comes to the emergency room with 1 week history of increasing right-sided perianal pain. Patient denies any fever or chills. Patient denies any drainage. Patient had a similar episode in the past which required incision and drainage. Patient was seen in the clinic include and started on oral antibiotics consisting of Cipro, Flagyl, Augmentin. Patient symptoms did not improve and therefore he came to the emergency room. Patient denies sore throat, runny nose, cough, headache, dizziness or chest pain. Patient had a CAT scan which was reviewed. Review of systems: Otherwise unremarkable Past medical history: Hyperlipidemia, hypertension, type 2 diabetes Past surgical history: Previous incision and drainage of a perianal abscess Allergies: None Social history: Patient denies smoking but does drink alcohol occasionally Family history: Mother was diagnosed with colon cancer at age 60 with mets to the lungs Vital signs: Stable, afebrile Physical exam: Awake alert oriented x3 Head and neck exam: Cranial nerves II through XII grossly within normal limits, no neck masses, no JVD, throat clear and neck supple Chest: Clear Heart: S1-S2 Abdomen: Soft, nondistended, nontender, positive bowel sounds Extremity: Neurovascular intact, nontender Neuro: Nonfocal Diagnostic data: Mild leukocytosis with an abscess and cellulitis seen on CT of the pelvis Assessment: Right perianal abscess with cellulitis Plan/recommendation: Admit, n.p.o., IV fluid, IV antibiotics and to the OR for exam under anesthesia, rigid proctoscopy and incision and drainage of right perianal abscess. Patient understands risks, benefits and alternatives and agrees to procedure. Patient was advised that he needs an outpatient colonoscopy 4 to 6 weeks after discharge, because of his family history of colon cancer and personal history of recurrent perianal abscesses. CC:
[2022-09-26 09:30] LABS: Specific Gravity > 1.030 (1.005-1.030); Urine Bacteria None Seen /HPF (<20); Urine Bilirubin NEGATIVE (Negative); Urine Blood Negative (Negative); Urine Clarity Clear (Clear); Urine Color Yellow (Yellow); Urine Glucose NEGATIVE (Negative); Urine Protein TRACE (Negative); Urine RBC <5 /HPF (None Seen); Urine Urobilinogen Normal (Normal); Urine pH 5.5 (5.0-7.0)
[2022-09-26] MEDS ORDERED: BUPIVACAINE 0.5% PF 10 ML VIAL ONE (09:37)
[2022-09-26] MEDS ORDERED: NA CHLORIDE 0.9% 1,000 ML ONE (09:39)
[2022-09-26] MEDS ORDERED: MIDAZOLAM HCL 2 MG/2 ML INJ ONE (10:06)
[2022-09-26] MEDS ORDERED: FENTANYL CITR 100 MCG/2 ML ONE (10:06)
[2022-09-26] MEDS ORDERED: propofoL 200 MG/20 ML VIAL IV ONE (10:06)
--- NOTE | 2022-09-26 10:41 | P.OP ---
Date of Service: 09/26/22 Preop diagnosis: Right perianal abscess Postop diagnosis: Same Procedure performed: Examiner anesthesia, incision, drainage and debridement of right perianal abscess Surgeon: Brett Givens MD [employer] Supervisor: Angeles BEJARANO Estimated blood loss: Minimal Specimen: Pus Findings: As above Anesthesia: General Complications: None Drains: None Fluids and blood products: Nonapplicable Disposition: Recovery room Operative note: Patient brought to the OR and placed in the supine position. General anesthesia begun. Patient placed in the lithotomy position. Patient prepped and draped in the usual sterile fashion. Exam under anesthesia revealed a 4 cm fluctuant mass in the right anterior perianal region with surrounding induration and erythema. Rectal exam did not reveal any evidence of disease, however, large amount of stool was present so proctoscopy could not be done. Marcaine 0.5% infiltrated locally. 15 blade used to make a 3 cm radial incision in the anterior right side of the perianal region. Pus under pressure evacuated. Cultures taken. Loculations broken. Necrotic tissue debrided. Wound irrigated and bleeding controlled with cautery. Wet-to-dry normal saline dressing change applied. Patient tarted the procedure in stable condition and taken to recovery room in good general condition. CC:
[2022-09-26] MEDS: FENTANYL CITR 100 MCG/2 ML ONE ×2 (10:45→10:56)
[2022-09-26] MEDS ORDERED: KETOROLAC 30 MG/ML INJ ONE (10:53)
[2022-09-26] MEDS ORDERED: HYDROMORPHONE HCL 1 MG/ML INJ IV PRN (10:54)
[2022-09-26] MEDS ORDERED: POTASSIUM CL SA 10 MEQ TAB PO ONE (13:26)
--- NOTE | 2022-09-26 18:58 | P.PN ---
Subjective Date of Service: 09/26/22 Chief Complaint: Perianal abscess No acute events since admission. He had a low-grade fever of 100.7 F overnight. He reports pain in his right buttock, graded 8/10 in severity. He has been NPO past midnight in anticipation for surgery this morning. Review of Systems 10-point ROS is otherwise unremarkable Musculoskeletal: Other (right buttock pain) Physical Examination - Vital Signs Temperature: 98.2 F Blood Pressure: 121/69 Pulse: 70 Respirations: 16 Pulse Ox (%): 100 - Physical Exam General: Alert, In no apparent distress, Oriented x3 HEENT: Atraumatic, Mucous membr. moist/pink, Sclerae nonicteric Neck: JVD not distended Respiratory: Clear to auscultation bilaterally, Normal air movement Cardiovascular: No edema, Regular rate/rhythm, Normal S1 S2, No gallops, No rubs, No murmurs Gastrointestinal: Normal bowel sounds, Soft and benign, Non-distended, No tenderness, No rebound, No guarding Musculoskeletal: No clubbing Integumentary: Other (3-4 cm abscess noted on anteromedial right buttock. College Instructor present for exam: PAPO Delacruz) Neurological: Normal speech, Normal affect Assessment And Plan - Plan # Sepsis likely secondary to Purulent Cellulitis with Right Perianal Abscess He met SIRS criteria based on temperature > 100.4 F, HR > 90 bpm, and RR > 20 breaths/min, and the suspected source is a skin/soft tissue infection. - CT pelvis = "36 x 20 mm subcutaneous perianal abscess on the right." - General Surgery consulted - recommendations appreciated - Plan for I&D today - Has been NPO past midnight - Sepsis order set was initiated - Initial Lactate was 1.1 - Blood cultures drawn before antibiotics were given - Broad spectrum antibiotics started: Piperacillin-Tazobactam - In regards to fluids: - 30 mL/kg of IV fluids was not administered given SBP > 90, MAP > 65, lactic acid < 4 # Type II Diabetes Mellitus - Hgb A1c = 6.6 % - Correction scale insulin - Hold home glimepiride, metformin while NPO # Hypertension - Hold home lisinopril while NPO Faheem Shannon M.D.
[2022-09-26] MEDS: HYDROCODONE/APAP 7.5/325 MG TAB PO PRN (21:55)
[2022-09-27] MEDS: PIPER TAZO 3.375 GM in NA CHLORIDE 0.9% 100 ML IV SCH ×2 (00:36→08:03)
[2022-09-27 02:57] LABS: Hematocrit 34.4 % (39.6-49.0); Lymphocytes % 25.8 % (15.3-44.8); MCV 95.1 fL (80-100); MPV 9.4 fL (7.6-11.3); RBC Red Blood Cell Count 3.61 M/uL (4.33-5.43)
[2022-09-27 03:09] LABS: Potassium 3.8 mEq/L (3.5-5.1)
[2022-09-27] MEDS ORDERED: POTASSIUM CL SA 10 MEQ TAB PO ONE (04:00)
[2022-09-27] MEDS: HYDROCODONE/APAP 7.5/325 MG TAB PO PRN ×2 (05:17→08:56)
[2022-09-27] MEDS: INSULIN -REGULAR HUMAN 50 UNIT/0.5 ML ML SQ SCH (07:30)
--- NOTE | 2022-09-27 08:17 | P.DS ---
Admission Date: 09/25/22 Discharge Date: 09/27/22 Disposition: ROUTINE DISCHARGE Discharge Condition: GOOD Reason for Admission: Perianal abscess Consultations: 1. General Surgery Procedures: - 09/26/2022 - Incision, Drainage, and Debridement of Right Perianal Abscess Hospital Course: DIAGNOSES: # Sepsis likely secondary to Purulent Cellulitis with Right Perianal Abscess # Type II Diabetes Mellitus # Hypertension HOSPITAL COURSE: Mr. Gregg Barcenas is a pleasant 56 year old male with a past medical history significant for type II diabetes mellitus and hypertension who was admitted to the [facility] on 09/25/2022 for a perianal abscess. He was admitted to the Medicine service. Upon further evaluation, he was found to have sepsis secondary to purulent cellulitis with a right perianal abscess. His CT pelvis revealed, "36 x 20 mm subcutaneous perianal abscess on the right." General Surgery was consulted and he was evaluated by Dr. Givens. On 09/26/2022, he underwent incision, drainage, and debridement of the right perianal abscess. He tolerated the procedure well. He was given IV antibitiocs and monitored overnight. This morning, he stated that he felt well. Dr. Givens has cleared him for discharge with an additional 10 days of amoxicillin-clavulanate. On 09/27/2022, he was seen on morning rounds and deemed medically stable for discharge. He was discharged with instructions to schedule follow-up appointments with his PCP and with General Surgery (Dr. Givens). He was provided prescriptions for amoxicillin-clavulanate and hydrocodone-acetaminophen. He was given the opportunity to ask questions and reported no further questions. Furthermore, all questions were answered to the best of my ability. Prior to the controlled substance prescription, a PDMP review was conducted. Over the last 2 years, he has received 1 controlled prescription from 1 provider to 1 pharmacy. His opioid overdose risk score is 190. A copy of this discharge summary will be sent to the above providers to facilitate continuity of care. Today, I personally spent 20 minutes on his case, of which greater than 50% of the time was spent in patient education, counseling, and coordination of care as described above. - Physical Exam General: Alert, In no apparent distress, Oriented x3 HEENT: Atraumatic, Mucous membr. moist/pink, Sclerae nonicteric Respiratory: Clear to auscultation bilaterally, Normal air movement Cardiovascular: No edema, Regular rate/rhythm, No murmurs Gastrointestinal: Normal bowel sounds, Soft, Non-distended, No tenderness Integumentary: Other (surgical site covered in clean dressing. Imaging Services Director present for exam: PAPO Allen) Neurological: Normal speech, Normal affect Vital Signs/Physical Exam: Temp Pulse Resp BP Pulse Ox 98.0 F 65 18 132/72 98 09/27/22 04:00 09/27/22 04:00 09/27/22 06:17 09/27/22 04:00 09/27/22 06:17 Laboratory Data at Discharge: WBC 7.90 thou/uL (4.3-10.9) 09/27/22 02:12 Hgb 11.4 g/dL (13.6-17.9) L 09/27/22 02:12 Hct 34.4 % (39.6-49.0) L 09/27/22 02:12 Plt Count 216 thou/uL (152-406) 09/27/22 02:12 PT 13.4 SECONDS (9.5-12.5) H 09/25/22 20:53 INR 1.22 09/25/22 20:53 APTT 27.9 SECONDS (24.3-36.9) 09/25/22 20:53 Sodium 139 mEq/L (136-145) 09/27/22 02:12 Potassium 3.8 mEq/L (3.5-5.1) 09/27/22 02:12 BUN 10 mg/dL (7-18) 09/27/22 02:12 Creatinine 0.80 mg/dL (0.70-1.30) 09/27/22 02:12 Glucose 119 mg/dL (74-106) H 09/27/22 02:12 Total Bilirubin 0.4 mg/dL (0.2-1.0) 09/25/22 17:11 AST 27 U/L (15-37) 09/25/22 17:11 ALT 45 U/L (16-61) 09/25/22 17:11 Alkaline Phosphatase 47 U/L (45-117) 09/25/22 17:11 Home Medications: RX: Glimepiride [Amaryl*] 2 mg PO BID 12/13/21 RX: Lisinopril [Zestril] 1 tab PO DAILY 12/13/21 RX: Metformin HCl 1,000 mg PO BID 12/13/21 Amox/Clavulanate [Augmentin 875-125 Tab] 875 mg PO BID 10 Days #20 tab 09/27/22 Hydrocodone 5/APAP 325 [[place] 5/325] 1 tab PO Q6H PRN 3 Days #12 tab 09/27/22 New Medications: Amox/Clavulanate [Augmentin 875-125 Tab] 875 mg PO BID 10 Days #20 tab Hydrocodone 5/APAP 325 [[place] 5/325] 1 tab PO Q6H PRN 3 Days #12 tab PRN Reason: Pain Physician Discharge Instructions: 1. Please call and schedule a follow-up appointment with your PCP in 3-5 days 2. Please call and schedule a follow-up appointment with General Surgery (Dr. Givens) in 5-7 days - Please do not drive or operate heavy machinery while taking pain medications. Wet-to-dry normal saline dressing changes as instructed Sitz bath after BM Diet: ADA Activity: Ad karen Followup: PRINCESS SÁNCHEZ [Primary Care Provider] - (call to schedule appointment in 3-5 days) Brett Givens MD [ACTIVE - CAN ADMIT] - 1-2 Weeks (call to schedule an appointment ) Time spent managing pt's care (in minutes): 25
[2022-09-27 09:05] VITALS: BP 131/70; TEMP 97.3
--- NOTE | 2022-09-27 09:28 | PN ---
Date of Progress Note: 09/27/2022 Subjective: The patient is awake, alert. No complaints. Pain is much better. Objective: Vital Signs: Afebrile. Extremities: Dressing is clean, dry, and intact. Laboratory Data: White count is normal. His cultures are pending. Assessment: Status post incision, drainage and debridement of right perianal abscess. Recommendations: As the patient is clinically doing well, the patient will be discharged home on ant ibiotics. We will check cultures and adjust antibiotics accordingly as an outpatient. Follow up wit h ny in a week to 2 weeks and discharge instructions given. Dressing orders are given. The patient has been taught how to change the dressing as well and discharge planning discussed with Dr. Shannon. /MODL Voice ID: [id number] Report ID: [id number]
[2022-09-27 09:34] VITALS: O2SAT 100
--- NOTE | 2022-09-27 14:25 | EKG ---
Test Date: 2022-09-25 Test Time: 17:21:05 Director Ship: [employer] MEASUREMENT RESULTS: Intervals: Rate: 85 SC: 144 QRSD: 80 QT: 364 QTc: 433 Cannon: P: 39 SC: 144 QRS: 36 T: -4 INTERPRETIVE STATEMENTS: Normal sinus rhythm Normal ECG Compared to ECG 12/12/2021 12:39:32 No significant changes Electronically Signed On 09-27-22 14:22:21 CDT by Kojo Priest
== END 2022-09-27 11:27 | disposition home or self-care (01) | DRG 854 ==
LOC: ER 15:17 → ERHOLD 19:06 → 2ND 20:57
PROVIDERS: ADMIT Internal Medicine; ATTEND Internal Medicine
PROC: 0JBB0ZZ Excision of Perineum Subcutaneous Tissue and Fascia, Open Approach (ICD-10-PCS; principal; 2022-09-26 09:30)
DX: A41.9 Sepsis, unspecified organism (principal); K61.0 Anal abscess; I10 Essential (primary) hypertension; E78.5 Hyperlipidemia, unspecified; E11.9 Type 2 diabetes mellitus without complications; Z79.84 Long term (current) use of oral hypoglycemic drugs; Z87.891 Personal history of nicotine dependence; Z79.899 Other long term (current) drug therapy
CPT/HCPCS: 36415; 72193; 80048; 80053; 81001; 82947; 83036; 83605; 85025; 85610; 85730; 87040; 87070; 87075; 87205; 93005; 96374; 99285; J1815; J2250; J2270; J2543; J2704; J3010; J7030; Q9967